=== PATIENT | male | born 1950 | race Caucasian/White ===

== ENCOUNTER 2017-07-17 11:14 | Inpatient (IN) | payer MEDICARE, OTHER ==
[~2017-07-17] VITALS: Ht 157.5 cm; Wt 67.0 kg
[2017-07-17 11:18] VITALS: Ht 157.5 cm; Wt 67.0 kg
[2017-07-17] MEDS ORDERED: ONDANSETRON 4 MG INJ IV PRN (12:00)
[2017-07-17] MEDS ORDERED: ACETAMINOPHEN 325 MG TAB PO PRN (12:00)
[2017-07-17 12:37] LABS: BASOPHILS % 0.4 % (0.0-2.0); EOSINOPHILS # 0.1 10^3/ul (0.0-0.5); EOSINOPHILS % 0.9 % (0.0-7.0); HEMATOCRIT 37.7 % (42.0-52.0); HEMOGLOBIN 12.2 g/dl (14.0-18.0); LYMPHOCYTES # 2.6 10^3/ul (0.8-2.9); LYMPHOCYTES % 34.6 % (15.0-51.0); MEAN CORPUSCULAR HEMOGLOBIN 28.6 pg (29.0-33.0); MEAN CORPUSCULAR HGB CONC 32.4 g/dl (32.0-37.0); MEAN CORPUSCULAR VOLUME 88.5 fl (82.0-101.0); MEAN PLATELET VOLUME 9.6 fl (7.4-10.4); MONOCYTE # 0.5 10^3/ul (0.3-0.9); MONOCYTES % 6.5 % (0.0-11.0); NEUTROPHILS % 57.3 % (39.0-77.0); PLATELET COUNT 236 10^3/UL (140-415); RED BLOOD COUNT 4.26 10^6/ul (4.70-6.10); RED CELL DISTRIBUTION WIDTH 15.1 % (11.5-14.5); WHITE BLOOD COUNT 7.6 10^3/ul (4.8-10.8)
--- NOTE | 2017-07-17 13:14 | RADRPT ---
PROCEDURE: XR Chest 1 View. CLINICAL INDICATION: Chest pain TECHNIQUE: AP view of the chest was obtained. COMPARISON: None. FINDINGS: The cardiomediastinal silhouette is within normal limits. Subsegmental atelectasis is noted in the b ilateral lower lobes. No consolidations are identified. No pneumothorax is seen. Osseous structure s are intact. IMPRESSION: Subsegmental atelectasis in the bilateral lower lobes. RPTAT: AA .Cole Mcdonald MD, MD Date Time Electronically viewed and signed by .Cole Mcdonald MD, on 07/17/2017 13:14 .P/
[2017-07-17 13:17] LABS: CALCIUM 9.4 mg/dl (8.4-10.2); CREATININE 1.49 mg/dl (0.61-1.24); POTASSIUM 4.9 mmol/L (3.5-5.1)
[2017-07-17] MEDS ORDERED: NITROGLYCERIN 2% 1 GM OINT PKT TD STA (13:23)
[2017-07-17] MEDS ORDERED: ASPIRIN 81 MG TAB PO STA (13:23)
--- NOTE | 2017-07-17 13:23 | ERA ---
ER Documentation Chief Complaint Date/Time DATE: 07/17/17 TIME: 13:20 Chief Complaint dizzfletcher, cp, send by dr keyes due abnormal ekg HPI Patient is a 67-year-old male with hypertension and smoking who presents with chest pain. The patient has had chest pain for the past 2-3 months which comes and goes. He feels it like a pressure-like pain. He says that currently he has no chest pain. He was seen by Dr. Khalil his primary doctor in the office today who was concerned about his EKG and sent him to the ER for further workup and admission. ROS All systems reviewed and are negative except as per history of present illness. Allergies Allergies: Coded Allergies: No Known Allergy (Unverified , 07/17/17) PMhx/Soc History of Surgery: Yes (appendix) Hx Neurological Disorder: Yes (stroke) Hx Cardiac Disorders: Yes (htn, mi) Hx Alcohol Use: No Hx Substance Use: No Hx Tobacco Use: No Smoking Status: Never smoker FmHx Family History: No coronary disease, No diabetes Physical Exam Vitals Vital Signs Date Time Temp Pulse Resp B/P Pulse Ox O2 Delivery O2 Flow Rate FiO2 07/17/17 11:18 98.1 68 20 131/77 99 Physical Exam Const: No acute distress Head: Atraumatic Eyes: Normal Conjunctiva ENT: Normal External Ears, Nose and Mouth. Neck: Full range of motion..~ No meningismus. Resp: Clear to auscultation bilaterally Cardio: Regular rate and rhythm, no murmurs Abd: Soft, non tender, non distended. Normal bowel sounds Skin: No petechiae or rashes Back: No midline or flank tenderness Ext: No cyanosis, or edema Neur: Awake and alert Psych: Normal Mood and Affect Result Diagram: 07/17/17 1215 07/17/17 1215 Procedures/MDM EKG read by me: Rate/Rhythm: Regular rate and rhythm at a normal rate Intervals: Normal Impression: Patient has sinus rhythm with a normal rate however there are biphasic T waves in leads V2 and V3 concerning for possible Wellens syndrome Chest x-ray shows no pneumonia or pneumothorax per radiology. Smoking Cessation Therapy: Pt. was lectured for greater than 3 minutes on the health risks of continued smoking and the benefits of cessation. Patient is a 67-year-old male with hypertension and smoking history of presents with chest pain. Given his age and comorbidities I am concerned for possible acute coronary syndrome. His EKG is concerning as well. He does not meet STEMI criteria at this time. The patient has laboratory studies show a mild anemia and mild acute renal failure. The patient is pending a troponin at this time. The patient was given aspirin nitroglycerin empirically. He will be admitted to the care of Dr. Khalil his primary doctor. He will be admitted to a telemetry bed and will likely need cardiology consultation and potential catheterization urgently. Critical Care: Time: 35 minutes excluding all billable procedures. Treatments/Evaluations: Close monitoring and treatment of unstable vital signs, cardiorespiratory, and neurologic status, while maintaining tight balance of fluid, respiratory, and cardiac interventions. Departure Diagnosis: Primary Impression: Chest pain Qualified Code: R07.9 - Chest pain, unspecified type Condition: SERGO Collier MD Jul 17, 2017 13:23
[2017-07-17 13:25] VITALS: BP 136/80; PULSE 77; RESP 20
[2017-07-17] MEDS ORDERED: NITROGLYCERIN (SL) 0.4 MG TAB SL PRN ×2 (13:30→15:00)
[2017-07-17 13:52] LABS: TROPONIN-I 0.269 ng/ml (0.00-0.12)
[2017-07-17 14:00] VITALS: PULSE 68
[2017-07-17] MEDS ORDERED: LORAZEPAM 0.5 MG TAB PO PRN (15:00)
[2017-07-17] MEDS ORDERED: ACETAMINOPHEN 500 MG TAB PO PRN (15:00)
[2017-07-17 16:00] VITALS: PULSE 62
[2017-07-17] MEDS: IPRATROPIUM (NEB) 0.5 MG/2.5 ML AMP HHN SCH ×2 (16:00→23:34)
[2017-07-17] MEDS: ALBUTEROL 0.083% (NEB) 2.5 MG/3 ML AMP HHN SCH ×2 (16:00→23:34)
--- NOTE | 2017-07-17 16:28 | CONS ---
Date/Time of Note Date/Time of Note DATE: 07/17/17 TIME: 16:27 Assessment/Plan Assessment/Plan Chief Complaint/Hosp Course NSTEMI: Pt has been having chest pain with exertion or emotional stress for 2 months now. His EKG is certainly concerning for a recent ID which judging by the pt's body stoicism, he likely ignored. Now he is having significant angina still and his initial trop is mildly elevated (I wonder if it is still coming down and has not cleared from his ID) and checking a trend and CKMB would help decide on subacuity. Currently he is completely asymptomatic and therefore no need for emergent cardiac cath. Will trend trops (if rising, start heparin drip) , check echo (suspect low EF from ID) and plan for cardiac cath as soon as chemical laboratory tester availability allows. Likely cardiomyopathy: check echo. Borderline fluid status HTN Tobacco use -stat trop, if rising start heparin drip, otherwise trend for now -continue ASA, statin -possible cath tomorrow at 12:30 as there may be a cancellation. For now keep NPO after midnight -add coreg -echo Problems: Consultation Date/Type/Reason Admit Date/Time Jul 17, 2017 at 11:47 Date of Consultation: Jul 17, 2017 Type of Consultation: Cardiology Reason for Consultation NSTEMI, chest pain, abnormal EKG Referring Provider: FAWN FERGUSON MD Hx of Present Illness 67 yo M with a h/o HTN, tobacco use who presented to his PMD (Dr Ferguson) office complaining of two months of chest pain and was sent to the ED for further management. The pt notes that over the past 2 months he has been having chest and neck pressure everytime he exerts himself, gets emotionally upset, or has food. He also has been having intermittent episodes of SOB and RAPP but no orthopnea, edema. His family tells me that he had an irregular heart beat and was offered a PPM but refused. He denies syncope. Currently no symptoms and in general no rest symptoms unless eating or upset. per HPI, otherwise negative Past Medical History per HPI Social History Smoking Status: Never smoker Exam/Review of Systems Vital Signs Vitals Vital Signs Date Time Temp Pulse Resp B/P Pulse Ox O2 Delivery O2 Flow Rate FiO2 07/17/17 13:25 97.7 77 20 136/80 98 Room Air Exam Constitutional: alert, oriented, No distress Psych: nl mood/affect, no complaints Head: atraumatic, normocephalic Eyes: nl conjunctiva ENMT: nl nasal mucosa & septum Neck: jvd (7-8cm), supple Respiratory: clear to auscultation, No crackles/rales, No diminished breath sounds Cardiovascular: regular rate and rhythm, systolic murmur (2/6 CHANDU), No edema Gastrointestinal: non-tender, soft, No distended Neurological: nl mental status, nl speech Skin: No rash or lesions Results EKG: sinus, anterolateral q waves V1 through V4 with mild ST elevation and biphasic TWs Result Diagram: 07/17/17 1215 07/17/17 1215 Results 24 hrs Laboratory Tests Test 07/17/17 12:15 White Blood Count 7.6 Red Blood Count 4.26 L Hemoglobin 12.2 L Hematocrit 37.7 L Mean Corpuscular Volume 88.5 Mean Corpuscular Hemoglobin 28.6 L Mean Corpuscular Hemoglobin Concent 32.4 Red Cell Distribution Width 15.1 H Platelet Count 236 Mean Platelet Volume 9.6 Neutrophils % 57.3 Lymphocytes % 34.6 Monocytes % 6.5 Eosinophils % 0.9 Basophils % 0.4 Nucleated Red Blood Cells % 0.0 Neutrophils # (Manual) 4.3 Lymphocytes # 2.6 Monocytes # 0.5 Eosinophils # 0.1 Basophils # 0.0 Nucleated Red Blood Cells # 0.0 Sodium Level 141 Potassium Level 4.9 Chloride Level 106 Carbon Dioxide Level 25 Anion Gap 15 Blood Urea Nitrogen 27 H Creatinine 1.49 H Glucose Level 85 Calcium Level 9.4 Troponin I 0.269 *H Medications Medications Current Medications Lorazepam (Ativan) 0.5 mg Q6H PRN PO ANXIETY; Start 07/17/17 at 15:00 Atorvastatin Calcium (Lipitor) 40 mg HS PO ; Start 07/17/17 at 21:00 Nitroglycerin (Nitroglycerin (Sl Tab) 0.4 Mg) 1 tab Q5M PRN SL ANGINA; Start at 15:00 Metoprolol Tartrate (Lopressor) 25 mg BID PO ; Start 07/17/17 at 21:00 Enalapril Maleate (Vasotec) 2.5 mg BID PO ; Start 07/17/17 at 21:00 Pantoprazole (Protonix Tab) 40 mg DAILY@06 PO ; Start 07/18/17 at 06:00 Enoxaparin Sodium (Lovenox) 40 mg BID SC ; Start 07/17/17 at 21:00 Acetaminophen (Tylenol Tab) 500 mg Q6H PRN PO PAIN AND OR ELEVATED TEMP; Start 07/17/17 at 15:00 Aspirin (Ecotrin) 81 mg DAILY PO ; Start 07/18/17 at 09:00 Fenofibrate (Tricor) 145 mg DAILY PO ; Start 07/18/17 at 09:00 Carvedilol (Coreg) 3.125 mg BID PO ; Start 07/17/17 at 16:30; Status UNV SHELLY FELICIANO Jul 17, 2017 16:28
[2017-07-17 20:00] VITALS: BP 114/78; PULSE 80; RESP 18
--- NOTE | 2017-07-17 20:29 | HP ---
Date/Time of Note Date/Time of Note DATE: 07/17/17 TIME: 20:19 Assessment/Plan VTE Prophylaxis VTE Prophylaxis Intervention: ambulation, anti-embolic stocking VTE Contraindication Reason: peripheral vascular disease Lines/Catheters IV Catheter Type (from Nrs): [place] [employer] line still needed: No Urinary Cath still in place: No Reason Cath still needed: urinary retention Assessment/Plan Assessment/Plan 1.IHD angina s/p acute mi; still with elevated troponin 2.HTN with mild chf 3.Dyslipidemia 4.COPD 5.heavy smoker for more than 40 years 6Hx of PUD 7.PAD 8.Nicotine addiction 9.Weight loss 10.Memory impairment 11.BPH 12.Dizziness 13.Noncompliance to meds. 14.Hx of CVA with left weakness more than 10 years ago, resolved Cont'd Hospitalization Reason: acute mi. HPI/ROS Admit Date/Time Admit Date/Time Jul 17, 2017 at 11:47 Hx of Present Illness CP on and off last 2 months. Now with more pressure sensation and worsening of sob. ECG in the office had shown diffuse anterio-septo and lateral st-t changes.No pvc's; Referred to er and asked to evaluate the patient. Hx of CVA with the HX of pud . ROS Subjective hx not possible: pt critical status Constitutional: diaphoresis, fatigue, improved, nausea, poor po, No chills, No disoriented, No febrile, No no complaints, No other, No weight change ENT: congestion, discharge, sore throat, No bleeding, No dysphagia, No no complaints, No other, No pain Respiratory: cough, shortness of breath, No no complaints, No other, No pain, No pleuritic pain, No sputum, No wheezing Cardiovascular: chest pain (no no pain. Pressure sensation is there.), lightheadedness, palpitations, No edema, No no complaints, No orthopenea, No other, No paroxysmal nocturnal dyspnea Gastrointestinal: constipation, decreased appetite, passing stool, No blood, No diarrhea, No flatus, No nausea, No no complaints, No other, No pain, No vomiting Genitourinary: dysuria, flank pain, No bleeding, No discharge, No hematuria, No no complaints, No other Musculoskeletal: back pain, bone/joint pain, neck pain, No no complaints, No other, No restricted range of motion, No swelling Skin: pruritis, No bruising, No erythema, No laceration, No no complaints, No other, No rash , No skin lesions Neurologic: dizziness, headache, No confusion, No focal-weakness, No no complaints, No other, No seizure, No syncope Endocrine: dry skin, polydypsia Psychological: nl mood/affect, no complaints Immunologic: pruritis PMH/Family/Social Past Medical History Medical History: angina, colitis, congestive heart failure, coronary artery disease, diverticulitis, GERD, GI bleed, high cholesterol, hypertension, peptic ulcer disease, urinary tract infection, other (CVA.) Family History Significant Family History: heart disease, COPD Social History Alcohol Use: rarely Smoking Status: Current every day smoker Drug Use: none Exam/Review of Systems Vital Signs Vitals Vital Signs Date Time Temp Pulse Resp B/P Pulse Ox O2 Delivery O2 Flow Rate FiO2 07/17/17 16:57 82 17 96 21 07/17/17 13:25 97.7 136/80 Room Air Exam Constitutional: alert, distress, frail, oriented, well developed, No non-verbal, No other Psych: anxiety, depression, No confusion, No nl mood/affect, No no complaints, No other, No suicidal Head: atraumatic, normocephalic, No hematomas, No lacerations, No other Eyes: EOMI, PERRL, nl lids, No fundi, disc, No icteric, No nl conjunctiva, No nl sclera, No other ENMT: nl lips & teeth, No intubated, No mucosa pink and moist, No nl external ears & nose, No nl nasal mucosa & septum, No other, No tympanic membranes Neck: bruits, jvd, nuchal rigidity Respiratory: congested cough, diminished breath sounds, normal air movement, No clear to auscultation, No crackles/rales, No intercostal retraction, No labored breathing, No other, No respirations, No tactile fremitus, No wheezing Cardiovascular: bruits, regular rate and rhythm, systolic murmur Gastrointestinal: nl liver, spleen, non-tender, soft, No ascites, No bowel sounds, No distended, No firm, No hepatomegaly, No mass , No other, No rebound or guarding, No splenomegaly, No surgical scars, No tender Genitourinary - Male: nl penis, nl scrotum, No CVA tenderness, No discharge, No other Musculoskeletal: joint tenderness, muscle tone, muscle weakness Extremities: clubbing, normal pulses, No calf tenderness, No cyanosis, No edema, No other, No palpable cord, No pitting pedal edema, No tenderness Neurological: PO[employer] H[employer] INS[employer]OR II-XII intact, DTR's symmetric, nl mental status, No confused, No focal weakness, No lethargic, No nl speech, No nl strength, No numbness, No other, No reflexes, No unresponsive Skin: nl turgor (decreased.), No diaphoresis, No ecchymosis, No laceration, No other, No puncture, No rash or lesions Labs Result Diagram: 07/17/17 1215 07/17/17 1215 Medications Medications Current Medications Lorazepam (Ativan) 0.5 mg Q6H PRN PO ANXIETY; Start 07/17/17 at 15:00 Atorvastatin Calcium (Lipitor) 40 mg HS PO ; Start 07/17/17 at 21:00 Nitroglycerin (Nitroglycerin (Sl Tab) 0.4 Mg) 1 tab Q5M PRN SL ANGINA; Start at 15:00 Enalapril Maleate (Vasotec) 2.5 mg BID PO ; Start 07/17/17 at 21:00 Pantoprazole (Protonix Tab) 40 mg DAILY@06 PO ; Start 07/18/17 at 06:00 Enoxaparin Sodium (Lovenox) 40 mg BID SC ; Start 07/17/17 at 21:00 Acetaminophen (Tylenol Tab) 500 mg Q6H PRN PO PAIN AND OR ELEVATED TEMP; Start 07/17/17 at 15:00 Aspirin (Ecotrin) 81 mg DAILY PO ; Start 07/18/17 at 09:00 Fenofibrate (Tricor) 145 mg DAILY PO ; Start 07/18/17 at 09:00 Carvedilol (Coreg) 3.125 mg BID PO ; Start 07/17/17 at 16:30 FAWN FERGUSON MD Jul 17, 2017 20:29
[2017-07-17] MEDS: NICOTINE (7 MG/24 HR) PATCH TRANSDERM SCH (20:30)
[2017-07-17 20:35] LABS: CK-MB 1.4 ng/ml (0.0-2.4); TROPONIN-I 0.225 ng/ml (0.00-0.12)
[2017-07-17 20:49] LABS: IRON 29 ug/dl (35-150)
[2017-07-17 20:58] LABS: TOTAL IRON BINDING CAPACITY 290 ug/dl (241-421)
[2017-07-17] MEDS ORDERED: METOPROLOL 25 MG TAB PO SCH (21:00)
[2017-07-17 22:01] VITALS: PULSE 59
[2017-07-17] MEDS: AZITHROMYCIN 500MG/NS (PMX) 250 ML IVPB SCH (22:42)
[2017-07-17] MEDS: ATORVASTATIN 40 MG TAB PO SCH (22:43)
[2017-07-17] MEDS: ENALAPRIL 2.5 MG TAB PO SCH (22:43)
[2017-07-17] MEDS: ENOXAPARIN 40 MG/0.4 ML SYG SC SCH (22:44)
--- NOTE | 2017-07-17 23:20 | CONS ---
Date/Time of Note Date/Time of Note DATE: 07/17/17 TIME: 23:20 Consultation Date/Type/Reason Admit Date/Time Jul 17, 2017 at 11:47 ENT: congestion, discharge, sore throat, No bleeding, No dysphagia, No no complaints, No other, No pain Respiratory: cough, shortness of breath, No no complaints, No other, No pain, No pleuritic pain, No sputum, No wheezing Cardiovascular: chest pain (no no pain. Pressure sensation is there.), lightheadedness, palpitations, No edema, No no complaints, No orthopenea, No other, No paroxysmal nocturnal dyspnea Gastrointestinal: constipation, decreased appetite, passing stool, No blood, No diarrhea, No flatus, No nausea, No no complaints, No other, No pain, No vomiting Genitourinary: dysuria, flank pain, No bleeding, No discharge, No hematuria, No no complaints, No other Musculoskeletal: back pain, bone/joint pain, neck pain, No no complaints, No other, No restricted range of motion, No swelling Skin: pruritis, No bruising, No erythema, No laceration, No no complaints, No other, No rash , No skin lesions Neurologic: dizziness, headache, No confusion, No focal-weakness, No no complaints, No other, No seizure, No syncope Psychological: anxiety, depression, No confusion, No nl mood/affect, No no complaints, No other, No suicidal Immunologic: pruritis Past Medical History Medical History: angina, colitis, congestive heart failure, coronary artery disease, diverticulitis, GERD, GI bleed, high cholesterol, hypertension, peptic ulcer disease, urinary tract infection, other (CVA.) Social History Alcohol Use: rarely Smoking Status: Current every day smoker Drug Use: none Exam/Review of Systems Vital Signs Vitals Vital Signs Date Time Temp Pulse Resp B/P Pulse Ox O2 Delivery O2 Flow Rate FiO2 07/17/17 22:01 59 07/17/17 20:00 97.9 18 114/78 100 Room Air 07/17/17 16:57 21 Results Result Diagram: 07/17/17 1215 07/17/17 1215 Results 24 hrs Laboratory Tests Test 07/17/17 12:15 07/17/17 16:28 07/17/17 19:48 White Blood Count 7.6 Red Blood Count 4.26 L Hemoglobin 12.2 L Hematocrit 37.7 L Mean Corpuscular Volume 88.5 Mean Corpuscular Hemoglobin 28.6 L Mean Corpuscular Hemoglobin Concent 32.4 Red Cell Distribution Width 15.1 H Platelet Count 236 Mean Platelet Volume 9.6 Neutrophils % 57.3 Lymphocytes % 34.6 Monocytes % 6.5 Eosinophils % 0.9 Basophils % 0.4 Nucleated Red Blood Cells % 0.0 Neutrophils # (Manual) 4.3 Lymphocytes # 2.6 Monocytes # 0.5 Eosinophils # 0.1 Basophils # 0.0 Nucleated Red Blood Cells # 0.0 Sodium Level 141 Potassium Level 4.9 Chloride Level 106 Carbon Dioxide Level 25 Anion Gap 15 Blood Urea Nitrogen 27 H Creatinine 1.49 H Glucose Level 85 Calcium Level 9.4 Iron Level 29 L Total Iron Binding Capacity 290 Percent Iron Saturation 10 L Troponin I 0.269 *H 0.246 *H 0.225 *H Creatine Kinase 73 Creatine Kinase Index 1.9 Creatinine Kinase MB (Mass) 1.40 Medications Medications Current Medications Lorazepam (Ativan) 0.5 mg Q6H PRN PO ANXIETY; Start 07/17/17 at 15:00 Atorvastatin Calcium (Lipitor) 40 mg HS PO Last administered on 07/17/17 22:43 ; Admin Dose 40 MG; Start 07/17/17 at 21:00 Nitroglycerin (Nitroglycerin (Sl Tab) 0.4 Mg) 1 tab Q5M PRN SL ANGINA; Start at 15:00 Enalapril Maleate (Vasotec) 2.5 mg BID PO Last administered on 07/17/17 22:43; Admin Dose 2.5 MG; Start 07/17/17 at 21:00 Pantoprazole (Protonix Tab) 40 mg DAILY@06 PO ; Start 07/18/17 at 06:00 Enoxaparin Sodium (Lovenox) 40 mg BID SC Last administered on 07/17/17 22:44; Admin Dose 40 MG; Start 07/17/17 at 21:00 Acetaminophen (Tylenol Tab) 500 mg Q6H PRN PO PAIN AND OR ELEVATED TEMP; Start 07/17/17 at 15:00 Aspirin (Ecotrin) 81 mg DAILY PO ; Start 07/18/17 at 09:00 Fenofibrate (Tricor) 145 mg DAILY PO ; Start 07/18/17 at 09:00 Carvedilol (Coreg) 3.125 mg BID PO Last administered on 07/17/17 22:43; Admin Dose 3.125 MG; Start 07/17/17 at 16:30 Nicotine 1 patch 1 patch DAILY TRANSDERM Last administered on 07/17/17 20:30; Admin Dose 1 PATCH; Start 07/17/17 at 20:30 Azithromycin (Zithromax 500mg/ NS (Pmx)) 250 ml @ 250 mls/hr Q24H IVPB Last administered on 07/17/17 22:42; Admin Dose 250 MLS/HR; Start 07/17/17 at 20:30; Stop 07/19/17 at 20:29 BARBER BUITRAGO MD Jul 17, 2017 23:20
[2017-07-17 23:49] VITALS: BP 120/62; PULSE 64; RESP 16
[2017-07-18] VITALS (40 sets, daily range): BP systolic 108–149; BP diastolic 56–82; PULSE 52–72; RESP 17–20
[2017-07-18 00:24] LABS: CK-MB 1.27 ng/ml (0.0-2.4); TROPONIN-I 0.243 ng/ml (0.00-0.12)
[2017-07-18] MEDS: PANTOPRAZOLE (EC) 40 MG TAB PO SCH (05:45)
[2017-07-18 06:11] LABS: BASOPHILS % 0.6 % (0.0-2.0); EOSINOPHILS # 0.1 10^3/ul (0.0-0.5); EOSINOPHILS % 1.5 % (0.0-7.0); HEMATOCRIT 34.3 % (42.0-52.0); HEMOGLOBIN 11.1 g/dl (14.0-18.0); LYMPHOCYTES # 2.9 10^3/ul (0.8-2.9); MEAN CORPUSCULAR HEMOGLOBIN 28.3 pg (29.0-33.0); MEAN CORPUSCULAR HGB CONC 32.4 g/dl (32.0-37.0); MEAN CORPUSCULAR VOLUME 87.5 fl (82.0-101.0); MEAN PLATELET VOLUME 9.9 fl (7.4-10.4); MONOCYTE # 0.5 10^3/ul (0.3-0.9); MONOCYTES % 6.9 % (0.0-11.0); NEUTROPHILS % 49.7 % (39.0-77.0); PLATELET COUNT 217 10^3/UL (140-415); RED BLOOD COUNT 3.92 10^6/ul (4.70-6.10); RED CELL DISTRIBUTION WIDTH 15.1 % (11.5-14.5); WHITE BLOOD COUNT 7.2 10^3/ul (4.8-10.8)
[2017-07-18 06:22] LABS: RETICULOCYTE COUNT % 1.1 % (0.5-1.5)
[2017-07-18 06:45] LABS: IRON 37 ug/dl (35-150)
[2017-07-18 06:55] LABS: TOTAL IRON BINDING CAPACITY 254 ug/dl (241-421)
[2017-07-18 07:01] LABS: CK-MB 1.15 ng/ml (0.0-2.4); TROPONIN-I 0.225 ng/ml (0.00-0.12)
[2017-07-18 07:31] LABS: CHOL/HDL RATIO 7.2 RATIO
[2017-07-18 07:38] LABS: LACTATE DEHYDROGENASE 432 IU/L (313-618); URIC ACID 7.7 mg/dl (3.1-7.9)
[2017-07-18] MEDS: ALBUTEROL 0.083% (NEB) 2.5 MG/3 ML AMP HHN SCH (08:00)
[2017-07-18] MEDS: IPRATROPIUM (NEB) 0.5 MG/2.5 ML AMP HHN SCH (08:00)
[2017-07-18 08:02] LABS: CARCINOEMBRYONIC ANTIGEN 1.4 ng/ml (0.0-5.0)
[2017-07-18 08:53] LABS: FOLATE > 20.0 ng/ml (2.8-20.0)
[2017-07-18] MEDS ORDERED: ASPIRIN (EC) 325 MG TAB PO SCH (09:00)
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
[2017-07-18] MEDS: FENOFIBRATE 145 MG TAB PO SCH (09:39)
[2017-07-18] MEDS: ENALAPRIL 2.5 MG TAB PO SCH ×2 (09:40→22:43)
[2017-07-18] MEDS: ENOXAPARIN 40 MG/0.4 ML SYG SC SCH ×2 (09:41→22:39)
[2017-07-18] MEDS: NICOTINE (7 MG/24 HR) PATCH TRANSDERM SCH (09:42)
--- NOTE | 2017-07-18 11:08 | CONS ---
Date/Time of Note Date/Time of Note DATE: 07/18/17 TIME: 10:59 Assessment/Plan Assessment/Plan Chief Complaint/Hosp Course NSTEMI: Pt has been having chest pain with exertion or emotional stress for 2 months now. His EKG is certainly concerning for a recent MD which judging by the pt's body stoicism, he likely ignored. Now he is having significant angina his trops suggest he had an MD in the recent past. Plan for cath for ongoing angina Likely cardiomyopathy: check echo. Borderline fluid status CKD: unknown baseline but per pt he has a h/o CKD HTN Tobacco use -cath today at 12:30 -continue ASA, statin -coreg -echo Problems: Consultation Date/Type/Reason Admit Date/Time Jul 17, 2017 at 11:47 Initial Consult Date 07/17/17 Type of Consultation: Cardiology Referring Provider: FAWN FERGUSON MD 24 HR Interval Summary Free Text/Dictation No o/n events. No chest pain overnight. Trops low level still ~0.2 Exam/Review of Systems Vital Signs Vitals Vital Signs Date Time Temp Pulse Resp B/P Pulse Ox O2 Delivery O2 Flow Rate FiO2 07/18/17 08:00 62 07/17/17 23:49 97.9 16 120/62 95 Room Air 07/17/17 23:34 21 Exam Constitutional: alert, oriented Psych: no complaints Head: atraumatic, normocephalic Neck: jvd (7-8cm) Respiratory: clear to auscultation, No crackles/rales Cardiovascular: regular rate and rhythm, No edema Gastrointestinal: non-tender, soft Extremities: normal pulses Neurological: nl mental status, nl speech Results Result Diagram: 07/18/17 0430 07/17/17 1215 Results 24 hrs Laboratory Tests Test 07/17/17 12:15 07/17/17 16:28 07/17/17 19:48 07/17/17 23:36 White Blood Count 7.6 Red Blood Count 4.26 L Hemoglobin 12.2 L Hematocrit 37.7 L Mean Corpuscular Volume 88.5 Mean Corpuscular Hemoglobin 28.6 L Mean Corpuscular Hemoglobin Concent 32.4 Red Cell Distribution Width 15.1 H Platelet Count 236 Mean Platelet Volume 9.6 Neutrophils % 57.3 Lymphocytes % 34.6 Monocytes % 6.5 Eosinophils % 0.9 Basophils % 0.4 Nucleated Red Blood Cells % 0.0 Neutrophils # (Manual) 4.3 Lymphocytes # 2.6 Monocytes # 0.5 Eosinophils # 0.1 Basophils # 0.0 Nucleated Red Blood Cells # 0.0 Sodium Level 141 Potassium Level 4.9 Chloride Level 106 Carbon Dioxide Level 25 Anion Gap 15 Blood Urea Nitrogen 27 H Creatinine 1.49 H Glucose Level 85 Calcium Level 9.4 Iron Level 29 L Total Iron Binding Capacity 290 Percent Iron Saturation 10 L Troponin I 0.269 *H 0.246 *H 0.225 *H 0.243 *H Creatine Kinase 73 63 Creatine Kinase Index 1.9 2.0 Creatinine Kinase MB (Mass) 1.40 1.27 Test 07/18/17 04:29 07/18/17 04:30 Absolute Reticulocyte Count 0.042 Percent Reticulocyte Count 1.1 Uric Acid 7.7 Ferritin 144.0 Lactate Dehydrogenase 432 Triglycerides Level 161 H Cholesterol Level 195 LDL Cholesterol, Calculated 136 HDL Cholesterol 27 L Cholesterol/HDL Ratio 7.2 Carcinoembryonic Antigen 1.4 Vitamin B12 Level 331 Folate > 20.0 H Thyroid Stimulating Hormone (TSH) 1.740 White Blood Count 7.2 Red Blood Count 3.92 L Hemoglobin 11.1 L Hematocrit 34.3 L Mean Corpuscular Volume 87.5 Mean Corpuscular Hemoglobin 28.3 L Mean Corpuscular Hemoglobin Concent 32.4 Red Cell Distribution Width 15.1 H Platelet Count 217 Mean Platelet Volume 9.9 Neutrophils % 49.7 Lymphocytes % 41.0 Monocytes % 6.9 Eosinophils % 1.5 Basophils % 0.6 Nucleated Red Blood Cells % 0.0 Neutrophils # (Manual) 3.6 Lymphocytes # 2.9 Monocytes # 0.5 Eosinophils # 0.1 Basophils # 0.0 Nucleated Red Blood Cells # 0.0 Erythrocyte Sedimentation Rate 47 H Iron Level 37 Total Iron Binding Capacity 254 Percent Iron Saturation 15 L Creatine Kinase 59 Creatine Kinase Index 1.9 Creatinine Kinase MB (Mass) 1.15 Troponin I 0.225 *H Medications Medications Current Medications Lorazepam (Ativan) 0.5 mg Q6H PRN PO ANXIETY; Start 07/17/17 at 15:00 Atorvastatin Calcium (Lipitor) 40 mg HS PO Last administered on 07/17/17t 22:43 ; Admin Dose 40 MG; Start 07/17/17 at 21:00 Nitroglycerin (Nitroglycerin (Sl Tab) 0.4 Mg) 1 tab Q5M PRN SL ANGINA; Start at 15:00 Enalapril Maleate (Vasotec) 2.5 mg BID PO Last administered on 07/18/17 09:40; Admin Dose 2.5 MG; Start 07/17/17 at 21:00 Pantoprazole (Protonix Tab) 40 mg DAILY@06 PO Last administered on 07/18/17 05: 45; Admin Dose 40 MG; Start 07/18/17 at 06:00 Enoxaparin Sodium (Lovenox) 40 mg BID SC Last administered on 07/18/17 09:41; Admin Dose 40 MG; Start 07/17/17 at 21:00 Acetaminophen (Tylenol Tab) 500 mg Q6H PRN PO PAIN AND OR ELEVATED TEMP; Start 07/17/17 at 15:00 Fenofibrate (Tricor) 145 mg DAILY PO Last administered on 07/18/17 09:39; Admin Dose 145 MG; Start 07/18/17 at 09:00 Carvedilol (Coreg) 3.125 mg BID PO Last administered on 07/17/17 22:43; Admin Dose 3.125 MG; Start 07/17/17 at 16:30 Nicotine 1 patch 1 patch DAILY TRANSDERM Last administered on 07/18/17 09:42; Admin Dose 1 PATCH; Start 07/17/17 at 20:30 Azithromycin (Zithromax 500mg/ NS (Pmx)) 250 ml @ 250 mls/hr Q24H IVPB Last administered on 07/17/17 22:42; Admin Dose 250 MLS/HR; Start 07/17/17 at 20:30; Stop 07/19/17 at 20:29 Aspirin (Halfprin) 81 mg DAILY PO ; Start 07/18/17 at 09:47 SHELLY FELICIANO Jul 18, 2017 11:08
[2017-07-18] MEDS: ASPIRIN (EC) 81 MG TAB PO SCH (11:17)
--- NOTE | 2017-07-18 13:06 | RADRPT ---
Echocardiogram Report Patient Name: BUBBA PARDO Gender: Male Date: 1950 Study Date: 18-Jul-2017 Recruiting Manager: Prema LanderosTUBA CITY [facility] Ref. Physician: SHELLY LORENZANA Quality: Good Procedures: Transthoracic echocardiogram with complete 2D, M-Mode, and doppler examination. Indications: Abnormal EKG (anterior). NSTEMI. 2D/M Mode Doppler Measurement Value Normal Ranges Measurement Value Normal Ranges LVIDd 2D 4.5 3.5 - 5.6 cm AV Peak Jonathan 1.6 m/sec LVIDs 2D 3.2 2.1 - 4.1 cm AV Peak PG 10.0 mmHg FS 2D 29.8 % LVOT Peak Jonathan 1.0 m/sec LVPWd 2D 1.3 0.6 - 1.1 cm LVOT Peak PG 4.0 mmHg IVSd 2D 1.3 0.6 - 1.1 cm MV E Peak Jonathan 0.7 m/sec IVS/LVPW 2D 1.0 MV A Peak Jonathan 1.0 m/sec AoR Diam 2D 3.2 2.0 - 3.7 cm MV E/A 0.7 LA/Ao 2D 1 0 - 1 MV Decel Time 268 msec EDV 2D 90.5 cm3 MV E/A 0.7 ESV 2D 31.3 cm3 MR Peak PG 63.0 mmHg LA Dimen 2D 3.5 2.3 - 4.0 cm MR Peak Jonathan 4.0 m/sec TR Peak Jonathan 2.6 m/sec TR Peak PG 27.0 mmHg RVSP 30.0 mmHg Findings Left Ventricle: Normal left ventricular cavity size. Mild concentric left ventricular hypertrophy. Mild left ventricular systolic dysfunction. Ejection fraction is visually estimated at 45 %. Tissue Doppler/Mitral Doppler indices are consistent with impaired relaxation (Stage I diastolic dysfunction). Resting Segmental Wall Motion Analysis: Severe hypokinesis of the mid to distal septum and akinesis of the septum. Mild hypokinesis of the anterior wall. Right Ventricle: Normal right ventricular size. Normal right ventricular systolic function. Left Atrium: There is mild enlargement of left atrium. Right Atrium: The right atrium is normal in size. Mitral Valve: Mild mitral annular calcification. Mild mitral valve regurgitation. Aortic Valve: No hemodynamically significant aortic stenosis by doppler. Aortic cusps appear mildly calcified. Trace aortic valve regurgitation. Tricuspid Valve: Normal appearance of the tricuspid valve. Estimated peak PA systolic pressure 30 mmHg. There is trace tricuspid regurgitation. Pulmonic Valve: Normal pulmonic valve appearance. Pericardium: Normal pericardium with no significant pericardial effusion. Aorta: Normal aortic root. IVC: Normal size and normal respiratory collapse consistent with normal right atrial pressure. Conclusions Normal left ventricular cavity size. Mild concentric left ventricular hypertrophy. Mild left ventricular systolic dysfunction. Ejection fraction is visually estimated at 45 %. Tissue Doppler/Mitral Doppler indices are consistent with impaired relaxation (Stage I diastolic dysfunction). Severe hypokinesis of the mid to distal septum and akinesis of the septum. Mild hypokinesis of the anterior wall. Mild mitral valve regurgitation. Estimated peak PA systolic pressure 30 mmHg based on RA pressure of 3 mmHg. Electronically Signed By: Shelly Lorenzana 18-Jul-2017 13:05:30 -0700 Patient Name: BUBBA PARDO Study Date: 18-Jul-2017 [id number]
[2017-07-18] MEDS ORDERED: HEPARIN 1000 UNITS/ML 10 ML INJ ONE (13:28)
[2017-07-18] MEDS ORDERED: LIDOCAINE 1% (MDV) 20 ML INJ ONE (13:28)
[2017-07-18] MEDS ORDERED: MIDAZOLAM 1 MG/ML 2 ML INJ ONE (13:28)
[2017-07-18] MEDS ORDERED: IODIXANOL LOCM 100 ML BTL ONE (13:28)
[2017-07-18] MEDS ORDERED: HEPARIN 1000 UNITS/NS (A-LINE) 1,000 ML ONE (13:28)
[2017-07-18] MEDS ORDERED: FENTAnyl 50 MCG/ML VIAL ONE (13:29)
[2017-07-18] MEDS ORDERED: VERAPAMIL 5 MG INJ ONE (13:29)
[2017-07-18] MEDS ORDERED: NITROGLYCERIN (IC) 100 MCG/ML INJ ONE (13:29)
[2017-07-18] MEDS ORDERED: BIVALIRUDIN 250MG /NS 50 ML 50 ML IVPB ONE (14:18)
[2017-07-18] MEDS ORDERED: TICAGRELOR 90 MG TABLET ONE (14:26)
[2017-07-18] MEDS ORDERED: SOD CHLORIDE 0.9% 1,000 ML IV SCH (15:13)
--- NOTE | 2017-07-18 15:17 | CONS ---
DATE OF ADMISSION: 07/17/2017 DATE OF CONSULTATION: 07/18/2017 REASON FOR CONSULTATION: COPD. Thank you, Dr. Khalil, for this consultation. HISTORY OF PRESENT ILLNESS: This is a pleasant 67-year-old gentleman with extensive tobacco history of 1 pack per day for the last 50+ years, still smoking prior to this admission, presents with a 2-month history of intermittent chest pain, worse yesterday, with central pain radiating to his neck and both arms. Pain was intermittent in nature. It was associated with mild shortness of breath and dyspnea on exertion. Denies any nausea or vomiting. No fever or chills. No recent travel history. States he does not use any inhalers for underlying lung disease and is currently not interested in quitting smoking. PAST MEDICAL HISTORY: Hypertension, hyperlipidemia and tobacco use. MEDICATION: Per chart. ALLERGIES: NONE. SOCIAL HISTORY: Positive tobacco history, occasional alcohol, no history of drug use. FAMILY HISTORY: Noncontributory. REVIEW OF SYSTEMS: A 12-point review of systems currently unable to perform. PHYSICAL EXAMINATION: GENERAL: A well-nourished well-developed gentleman, comfortable at rest, no acute distress. VITAL SIGNS: Currently afebrile. Pulse is 57, blood pressure 120/62, O2 saturation 96 percent on room air. NECK: Supple. No JVD or lymphadenopathy. CARDIAC: S1, S2. No added sounds or murmurs. CHEST: Diminished air entry bilaterally but no rales or wheezes. ABDOMEN: Soft, nontender. No guarding or rebound. EXTREMITIES: No cyanosis, clubbing or edema. NEUROLOGICALLY: Grossly intact. No focal deficits. LABORATORY: White count 7.2, hemoglobin 11.1, platelets 217,000. BUN 27, creatinine 1.49. Troponin was 0.225. EKG showed evidence of recent infarct. Chest x-ray was reviewed, shows hyperinflation, bibasilar atelectasis. IMPRESSION AND PLAN: 1. Chest pain concerning for ongoing coronary ischemia with EKG evidence of recent myocardial infarction. 2. Elevated troponins concerning for active angina, non-ST elevation myocardial infarction. 3. Significant tobacco history, likely underlying chronic obstructive pulmonary disease. 4. Essential hypertension. Patient will require: 5. Bronchodilators. 6. Cardiac catheterization. 7. Supplemental O2 as needed. 8. Encourage smoking cessation. 9. DVT and GI prophylaxis. Dictated By: Néstor Dozier MD /wan/eryn /Document#: [id number]
--- NOTE | 2017-07-18 15:27 | OPR ---
Date/Time of Note Date/Time of Note DATE: 07/18/17 TIME: 15:16 Operative Report Free Text/Dictation Procedure Date: 07/18/2017 Procedures Performed: 1)Left heart catheterization with selective left and right coronary angiography. 2)Balloon angioplasty and stenting of the distal RCA with an [place] 2.75 x 15 stent. 3)Balloon angioplasty and stenting of the distal RCA/ostial PLV with a Synergy 2.5 x 12 stent. Pre-operative Diagnosis:NSTEMI, CAD, cardiomyopathy Post-operative Diagnosis:same s/p PCI of RCA Indications: 67 yo M with a h/o HTN, tobacco use who presented to his PMD office complaining of two months of chest pain and was sent to the ED for further management, found to have abnormal EKG, NSTEMI, cardiomyopathy (EF 45%). Cardiac cath for evaluation Description of Procedure: After informed consent, the patient was brought to the cardiac catheterization lab. The procedure site was prepped and draped in usual manner. The patient was premedicated with versed 1mg and fentanyl 25mcg. 2mL lidocaine was injected into the right wrist. Next using the posterior wall technique, the 6/5 canadian sheath was inserted into the right radial artery. Next using the JL3.5 and JR4, selective angiography of the left and right coronary arteries were obtained. The pigtail was then advanced into the ventricle and hemodynamics obtained. Left ventricle angiography was not obtained. The decision was made to proceed with PCI of the RCA as it appeared to be subacute with contrast hangup. A guide was advanced and engaged into the right coronary artery. After appropriate anticoagulation and antiplatelets were given , the PT 2 moderate support angioplasty wire was advanced past the lesion. Next the 2.0 X 12 balloon was used to dilate the lesion times with ARRON 1 flow established and more disease noted distally and in the ostial PL. A 2.0 x 8 balloon was used to dilated the PL lesion. Next a 2.5 x 12 balloon was used to redilate the original lesion. Subsequently a Synergy 2.5 x 12 stent was advanced to the distal RCA/PL lesion and deployed at nominal pressure. Subsequently, the Ren 2.75 x 15 stent was advanced to the distal RCA lesion and deployed at nominal pressure (overlapping). Next the stent was post dilated with the 2.75 X 12 noncompliant balloon times 3 at a maximum of 14 tee. Final angiography revealed ARRON 3 flow, no edge dissection, and appropriate stent expansion. Next all equipment was removed and hemostasis was achieved by TR band. Findings: Anatomy/Hemodynamics: Left main:normal LAD:prox 100% with left-left collaterals Circumflex: mid 40% Obtuse marginal:luminal irregularities RCA:mid-distal 100% with contrast staining/hang-up possible subacute lesion with left-right collaterals LV angiography:not done due to CKD LV-Ao: no gradient LVEDP: 15 mmHg Contrast used: 110mL Fluoroscopy time: 15.6 min Medications used: Versed 1 [id number] Heparin 2000 Angiomax bolus plus drip Ticagrelor 180mg NTG 200 IC verapamil 100 IC Equipment used: 6 canadian IM guide PT 2 moderate support angioplasty wire 2 x 12, 2 x 8, 2.5 x 12 balloon [place] 2.75 x 15 stent. 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
[2017-07-18] MEDS: ALBUTEROL/IPRATROPIUM (NEB) 3 ML AMP HHN SCH (20:00)
[2017-07-18 20:03] LABS: CK-MB 0.93 ng/ml (0.0-2.4); TROPONIN-I 0.354 ng/ml (0.00-0.12)
[2017-07-18] MEDS: TICAGRELOR 90 MG TABLET PO SCH (22:38)
[2017-07-18] MEDS: ATORVASTATIN 40 MG TAB PO SCH (22:39)
[2017-07-18] MEDS: AZITHROMYCIN 500MG/NS (PMX) 250 ML IVPB SCH (23:23)
--- NOTE | 2017-07-18 23:46 | CONS ---
Date/Time of Note Date/Time of Note DATE: 07/18/17 TIME: 23:46 Consultation Date/Type/Reason Admit Date/Time Jul 17, 2017 at 11:47 Initial Consult Date 07/17/17 [facility] Referring Provider: FAWN FERGUSON MD Exam/Review of Systems Vital Signs Vitals Vital Signs Date Time Temp Pulse Resp B/P Pulse Ox O2 Delivery O2 Flow Rate FiO2 07/18/17 22:11 98.3 66 20 123/77 99 07/18/17 21:02 Room Air 07/17/17 23:34 21 Results Result Diagram: 07/18/17 0430 07/17/17 1215 Results 24 hrs Laboratory Tests Test 07/18/17 04:29 07/18/17 04:30 07/18/17 19:05 Absolute Reticulocyte Count 0.042 Percent Reticulocyte Count 1.1 Uric Acid 7.7 Ferritin 144.0 Lactate Dehydrogenase 432 Triglycerides Level 161 H Cholesterol Level 195 LDL Cholesterol, Calculated 136 HDL Cholesterol 27 L Cholesterol/HDL Ratio 7.2 Carcinoembryonic Antigen 1.4 Vitamin B12 Level 331 Folate > 20.0 H Thyroid Stimulating Hormone (TSH) 1.740 White Blood Count 7.2 Red Blood Count 3.92 L Hemoglobin 11.1 L Hematocrit 34.3 L Mean Corpuscular Volume 87.5 Mean Corpuscular Hemoglobin 28.3 L Mean Corpuscular Hemoglobin Concent 32.4 Red Cell Distribution Width 15.1 H Platelet Count 217 Mean Platelet Volume 9.9 Neutrophils % 49.7 Lymphocytes % 41.0 Monocytes % 6.9 Eosinophils % 1.5 Basophils % 0.6 Nucleated Red Blood Cells % 0.0 Neutrophils # (Manual) 3.6 Lymphocytes # 2.9 Monocytes # 0.5 Eosinophils # 0.1 Basophils # 0.0 Nucleated Red Blood Cells # 0.0 Erythrocyte Sedimentation Rate 47 H Iron Level 37 Total Iron Binding Capacity 254 Percent Iron Saturation 15 L Creatine Kinase 59 78 Creatine Kinase Index 1.9 1.2 Creatinine Kinase MB (Mass) 1.15 0.93 Troponin I 0.225 *H 0.354 *H Medications Medications Current Medications Lorazepam (Ativan) 0.5 mg Q6H PRN PO ANXIETY; Start 07/17/17 at 15:00 Atorvastatin Calcium (Lipitor) 40 mg HS PO Last administered on 07/18/17t 22:39 ; Admin Dose 40 MG; Start 07/17/17 at 21:00 Nitroglycerin (Nitroglycerin (Sl Tab) 0.4 Mg) 1 tab Q5M PRN SL ANGINA; Start at 15:00 Enalapril Maleate (Vasotec) 2.5 mg BID PO Last administered on 07/18/17 09:40; Admin Dose 2.5 MG; Start 07/17/17 at 21:00 Pantoprazole (Protonix Tab) 40 mg DAILY@06 PO Last administered on 07/18/17 05: 45; Admin Dose 40 MG; Start 07/18/17 at 06:00 Enoxaparin Sodium (Lovenox) 40 mg BID SC Last administered on 07/18/17 22:39; Admin Dose 40 MG; Start 07/17/17 at 21:00 Acetaminophen (Tylenol Tab) 500 mg Q6H PRN PO PAIN AND OR ELEVATED TEMP; Start 07/17/17 at 15:00 Fenofibrate (Tricor) 145 mg DAILY PO Last administered on 07/18/17 09:39; Admin Dose 145 MG; Start 07/18/17 at 09:00 Carvedilol (Coreg) 3.125 mg BID PO Last administered on 07/17/17 22:43; Admin Dose 3.125 MG; Start 07/17/17 at 16:30 Nicotine 1 patch 1 patch DAILY TRANSDERM Last administered on 07/18/17 09:42; Admin Dose 1 PATCH; Start 07/17/17 at 20:30 Azithromycin (Zithromax 500mg/ NS (Pmx)) 250 ml @ 250 mls/hr Q24H IVPB Last administered on 07/18/17 23:23; Admin Dose 250 MLS/HR; Start 07/17/17 at 20:30; Stop 07/19/17 at 20:29 Aspirin (Halfprin) 81 mg DAILY PO Last administered on 07/18/17 11:17; Admin Dose 81 MG; Start 07/18/17 at 09:47 Ticagrelor (Brilinta) 90 mg BID PO Last administered on 07/18/17 22:38; Admin Dose 90 MG; Start 07/18/17 at 21:00 BARBER BUITRAGO MD Jul 18, 2017 23:46
[2017-07-19] VITALS (13 sets, daily range): BP systolic 107–132; BP diastolic 51–71; PULSE 56–69; RESP 16–21
[2017-07-19 02:52] LABS: PROTEIN, TOTAL 6.5 g/dL (6.1-8.1)
[2017-07-19] MEDS: PANTOPRAZOLE (EC) 40 MG TAB PO SCH (05:54)
[2017-07-19] MEDS: ALBUTEROL/IPRATROPIUM (NEB) 3 ML AMP HHN SCH ×3 (08:00→19:44)
--- NOTE | 2017-07-19 09:17 | PN ---
Date/Time of Note Date/Time of Note DATE: 07/19/17 TIME: 09:14 Assessment/Plan VTE Prophylaxis VTE Prophylaxis Intervention: ambulation, anti-embolic stocking VTE Contraindication Reason: peripheral vascular disease Lines/Catheters IV Catheter Type (from Nrsg): [place] [employer] line still needed: No Urinary Cath still in place: No Reason Cath still needed: urinary retention Assessment/Plan Assessment/Plan 1.IHD angina s/p acute mi; Multivessel disease s/p PTCA with stenting 2.HTN with mild chf 3.Dyslipidemia 4.Worsening of COPD-more sputum production. 5.heavy smoker for more than 40 years 6Hx of PUD 7.PAD 8.Nicotine addiction 9.Weight loss 10.Memory impairment 11.BPH 12.Dizziness 13.Noncompliance to meds. 14.Anemia with decreased iron level getting worse. 15.Hx of cva with left weakness more than 10 years ago, recovered well 16.Anxiety Cont'd Hospitalization Reason: s/p ptca. Subjective 24 Hr Interval Summary Free Text/Dictation I feel much better. Increased sputum production with now more clear than before sputum production. Constitutional: improved, no complaints, No chills, No diaphoresis, No disoriented, No febrile, No other, No poor po, No requiring IVF, No requiring O2 Eyes: No discharge, No no complaints, No other, No pain, No redness, No visual change ENT: No bleeding, No congestion, No discharge, No dysphagia, No no complaints, No other, No pain, No sore throat Respiratory: cough, sputum, No no complaints, No other, No pain, No pleuritic pain, No shortness of breath, No wheezing Cardiovascular: No chest pain, No edema, No lightheadedness, No no complaints, No orthopenea, No other, No palpitations, No paroxysmal nocturnal dyspnea Gastrointestinal: constipation, flatus, No blood, No decreased appetite, No diarrhea, No nausea, No no complaints, No other, No pain, No passing stool, No vomiting Genitourinary: dysuria, No bleeding, No discharge, No flank pain, No hematuria, No no complaints, No other Musculoskeletal: back pain, No bone/joint pain, No neck pain, No no complaints, No other, No restricted range of motion, No swelling Neurologic: No confusion, No dizziness, No focal-weakness, No headache, No no complaints, No other, No seizure, No syncope Endocrine: dry skin, No no complaints, No other, No polydypsia, No polyuria, No temp intolerance Lymphatic: No adenopathy, No lymphadema, No no complaints, No other, No tender nodes Psychological: anxiety Exam/Review of Systems Vital Signs Vitals Vital Signs Date Time Temp Pulse Resp B/P Pulse Ox O2 Delivery O2 Flow Rate FiO2 07/19/17 08:31 56 07/19/17 07:57 98.1 21 126/70 98 07/18/17 21:02 Room Air 07/17/17 23:34 21 Intake and Output 07/18/17 07/18/17 07/19/17 15:00 23:00 07:00 Intake Total 750 ml Balance 750 ml Exam Constitutional: alert, frail, oriented, well developed, No distress, No non-verbal, No obese, No other Psych: anxiety, nl mood/affect, no complaints, No confusion, No depression, No other, No suicidal Head: atraumatic, normocephalic, No hematomas, No lacerations, No other Eyes: EOMI, PERRL, nl conjunctiva, nl lids, No fundi, disc, No icteric, No nl sclera, No other ENMT: nl external ears & nose, tympanic membranes, No intubated, No mucosa pink and moist, No nl lips & teeth, No nl nasal mucosa & septum, No other Neck: bruits, supple, No jvd, No masses, No non-tender, No nuchal rigidity, No other, No thyromegaly Respiratory: clear to auscultation, congested cough, normal air movement Cardiovascular: bruits, nl pulses, regular rate and rhythm, systolic murmur, No S3, No S4, No diastolic murmur, No edema, No gallop, No irregular rhythm, No jugular venous distention (JVD), No murmurs/extra sounds, No other, No rub Gastrointestinal: bowel sounds, soft, No ascites, No distended, No firm, No hepatomegaly, No mass, No nl liver, spleen, No non-tender, No other, No rebound or guarding, No splenomegaly, No surgical scars, No tender Genitourinary - Male: nl penis, nl scrotum, No CVA tenderness, No discharge, No other Musculoskeletal: joint tenderness, muscle tone, muscle weakness, No nl extremities to inspection, No nl gait and stance, No other, No range of motion, No spine non-tender, No swelling Neurological: ENVIRONMENTAL SYSTEMS COORDINATOR II-XII intact, nl speech, nl strength (decreased.) Skin: diaphoresis, nl turgor, No ecchymosis, No laceration, No other, No puncture, No rash or lesions Lymph: No enlarged, No nl lymph nodes, No nontender, No other Results Result Diagram: 07/18/17 0430 07/17/17 1215 Results 24 hrs Laboratory Tests Test 07/18/17 19:05 Creatine Kinase 78 Creatine Kinase Index 1.2 Creatinine Kinase MB (Mass) 0.93 Troponin I 0.354 *H Medications Medications Current Medications Lorazepam (Ativan) 0.5 mg Q6H PRN PO ANXIETY; Start 07/17/17 at 15:00 Atorvastatin Calcium (Lipitor) 40 mg HS PO Last administered on 07/18/17 22:39 ; Admin Dose 40 MG; Start 07/17/17 at 21:00 Nitroglycerin (Nitroglycerin (Sl Tab) 0.4 Mg) 1 tab Q5M PRN SL ANGINA; Start at 15:00 Enalapril Maleate (Vasotec) 2.5 mg BID PO Last administered on 07/18/17 09:40; Admin Dose 2.5 MG; Start 07/17/17 at 21:00 Pantoprazole (Protonix Tab) 40 mg DAILY@06 PO Last administered on 07/19/17 05: 54; Admin Dose 40 MG; Start 07/18/17 at 06:00 Enoxaparin Sodium (Lovenox) 40 mg BID SC Last administered on 07/18/17 22:39; Admin Dose 40 MG; Start 07/17/17 at 21:00 Acetaminophen (Tylenol Tab) 500 mg Q6H PRN PO PAIN AND OR ELEVATED TEMP; Start 07/17/17 at 15:00 Fenofibrate (Tricor) 145 mg DAILY PO Last administered on 07/18/17 09:39; Admin Dose 145 MG; Start 07/18/17 at 09:00 Carvedilol (Coreg) 3.125 mg BID PO Last administered on 07/17/17 22:43; Admin Dose 3.125 MG; Start 07/17/17 at 16:30 Nicotine 1 patch 1 patch DAILY TRANSDERM Last administered on 07/18/17 09:42; Admin Dose 1 PATCH; Start 07/17/17 at 20:30 Azithromycin (Zithromax 500mg/ NS (Pmx)) 250 ml @ 250 mls/hr Q24H IVPB Last administered on 07/18/17 23:23; Admin Dose 250 MLS/HR; Start 07/17/17 at 20:30; Stop 07/19/17 at 20:29 Aspirin (Halfprin) 81 mg DAILY PO Last administered on 07/18/17 11:17; Admin Dose 81 MG; Start 07/18/17 at 09:47 Ticagrelor (Brilinta) 90 mg BID PO Last administered on 07/18/17 22:38; Admin Dose 90 MG; Start 07/18/17 at 21:00 FAWN FERGUSON MD Jul 19, 2017 09:17
--- NOTE | 2017-07-19 09:25 | RADRPT ---
PROCEDURE: US Carotids. CLINICAL INDICATION: bruit , evaluate bilateral carotids TECHNIQUE: Multiple sonographic of the carotid bifurcation region and vertebral arteries were obta ined utilizing espinoza scale, duplex and color-flow imaging. The images were reviewed on a PACS worksta tion. COMPARISON: No prior studies are available for comparison. FINDINGS: Evaluation of the right carotid bifurcation region reveals mild calcific atherosclerotic disease. Th ere is a 38% stenosis in the right common carotid artery. Evaluation of the left carotid bifurcation region reveals mild to moderate calcific atherosclerotic disease. . There is a 41% stenosis in the left common carotid artery. There is antegrade flow within the vertebral arteries bilaterally. RIGHT CAROTID MEASUREMENTS: Common Carotid Fxqlqg62.9 (cm/sec) Internal Carotid Artery - pmaiudwm74.5 (cm/sec) Internal Carotid Artery - mid44.8 (cm/sec) Internal Carotid Artery - tsddew50.9 (cm/sec) Internal Carotid/Common Carotid1.08 LEFT CAROTID MEASUREMENTS: Common Carotid Okmtmr51.6 (cm/sec) Internal Carotid Artery - ygbpatia19.7 (cm/sec) Internal Carotid Artery - kmc010.4 (cm/sec) Internal Carotid Artery - dcminh652.8 (cm/sec) Internal Carotid/Common Carotid2.38 RPTAT: AA IMPRESSION: 50-69% stenosis in the left ICA. - validated velocity measurements with angiographic measurements, v elocity criteria are extrapolated from diameter data as defined by the Society of Radiologists in Ul trasound Consensus Conference Radiology 2003; 229;340-346. This study does indirectly reference the measurement of the distal ICA diameter as the denominator for stenosis measurement. Normal antegrade flow in the vertebral arteries bilaterally. .Jonah Ryan MD, Date Time Electronically viewed and signed by .Jonah Ryan MD, MD on 07/19/2017 09:24 .S/
--- NOTE | 2017-07-19 09:57 | CONS ---
Date/Time of Note Date/Time of Note DATE: 07/19/17 TIME: 09:52 Assessment/Plan Assessment/Plan Chief Complaint/Hosp Course NSTEMI: s/p cath 07/18 with PCI of occluded RCA (likely subacute). 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 Ischemic cardiomyopathy: EF 45% with apical/septal WMA likely from prior CT but PDA was also a long vessel and travels to the apex. Euvolemic CKD: unknown baseline but per pt he has a h/o CKD HTN Tobacco use -pt to ambulate around the unit multiple times. If completely asymptomatic, ok to go home and f/u with me next week with plan for staged PCI of LAD in 2 weeks. If recurrent symptoms, PCI of LAD likely Sunday to allow for renal function to remain stable (check labs today) -continue ASA 81mg lifelong -ticagrelor 90mg BID at least one year -lipitor -coreg 3.125mg BID Problems: Consultation Date/Type/Reason Admit Date/Time Jul 17, 2017 at 11:47 Initial Consult Date 07/17/17 Type of Consultation: Cardiology Referring Provider: FAWN FERGUSON MD 24 HR Interval Summary Free Text/Dictation S/p PCI of RCA yesterday. Doing well. Exercised in his room as per his normal am routine and denies CP or SOB. Exam/Review of Systems Vital Signs Vitals Vital Signs Date Time Temp Pulse Resp B/P Pulse Ox O2 Delivery O2 Flow Rate FiO2 07/19/17 08:31 56 07/19/17 07:57 98.1 21 126/70 98 07/18/17 21:02 Room Air 07/17/17 23:34 21 Intake and Output 07/18/17 07/18/17 07/19/17 15:00 23:00 07:00 Intake Total 750 ml Balance 750 ml Exam Constitutional: alert, oriented Psych: nl mood/affect, no complaints Head: atraumatic, normocephalic Neck: supple, No jvd Respiratory: clear to auscultation, No crackles/rales Cardiovascular: regular rate and rhythm, No edema Gastrointestinal: non-tender, soft Neurological: nl mental status, nl speech Results Result Diagram: 07/18/17 0430 07/17/17 1215 Results 24 hrs Laboratory Tests Test 07/18/17 19:05 Creatine Kinase 78 Creatine Kinase Index 1.2 Creatinine Kinase MB (Mass) 0.93 Troponin I 0.354 *H Medications Medications Current Medications Lorazepam (Ativan) 0.5 mg Q6H PRN PO ANXIETY; Start 07/17/17 at 15:00 Atorvastatin Calcium (Lipitor) 40 mg HS PO Last administered on 07/18/17 22:39 ; Admin Dose 40 MG; Start 07/17/17 at 21:00 Nitroglycerin (Nitroglycerin (Sl Tab) 0.4 Mg) 1 tab Q5M PRN SL ANGINA; Start at 15:00 Enalapril Maleate (Vasotec) 2.5 mg BID PO Last administered on 07/18/17 09:40; Admin Dose 2.5 MG; Start 07/17/17 at 21:00 Pantoprazole (Protonix Tab) 40 mg DAILY@06 PO Last administered on 07/19/17 05: 54; Admin Dose 40 MG; Start 07/18/17 at 06:00 Enoxaparin Sodium (Lovenox) 40 mg BID SC Last administered on 07/18/17 22:39; Admin Dose 40 MG; Start 07/17/17 at 21:00 Acetaminophen (Tylenol Tab) 500 mg Q6H PRN PO PAIN AND OR ELEVATED TEMP; Start 07/17/17 at 15:00 Fenofibrate (Tricor) 145 mg DAILY PO Last administered on 07/18/17 09:39; Admin Dose 145 MG; Start 07/18/17 at 09:00 Carvedilol (Coreg) 3.125 mg BID PO Last administered on 07/17/17 22:43; Admin Dose 3.125 MG; Start 07/17/17 at 16:30 Nicotine 1 patch 1 patch DAILY TRANSDERM Last administered on 07/18/17 09:42; Admin Dose 1 PATCH; Start 07/17/17 at 20:30 Azithromycin (Zithromax 500mg/ NS (Pmx)) 250 ml @ 250 mls/hr Q24H IVPB Last administered on 07/18/17 23:23; Admin Dose 250 MLS/HR; Start 07/17/17 at 20:30; Stop 07/19/17 at 20:29 Aspirin (Halfprin) 81 mg DAILY PO Last administered on 07/18/17 11:17; Admin Dose 81 MG; Start 07/18/17 at 09:47 Ticagrelor (Brilinta) 90 mg BID PO Last administered on 07/18/17 22:38; Admin Dose 90 MG; Start 07/18/17 at 21:00 SHELLY FELICIANO Jul 19, 2017 09:57
[2017-07-19] MEDS: NICOTINE (7 MG/24 HR) PATCH TRANSDERM SCH (10:08)
[2017-07-19] MEDS: FENOFIBRATE 145 MG TAB PO SCH (10:09)
[2017-07-19] MEDS: ASPIRIN (EC) 81 MG TAB PO SCH (10:09)
[2017-07-19] MEDS: ENALAPRIL 2.5 MG TAB PO SCH ×2 (10:11→21:17)
[2017-07-19] MEDS: ENOXAPARIN 40 MG/0.4 ML SYG SC SCH ×2 (10:33→21:23)
[2017-07-19] MEDS: TICAGRELOR 90 MG TABLET PO SCH ×2 (10:34→21:26)
--- NOTE | 2017-07-19 11:13 | CONS ---
Date/Time of Note Date/Time of Note DATE: 07/19/17 TIME: 11:11 Consult Date/Type/Reason Admit Date/Time Jul 17, 2017 at 11:47 Initial Consult Date 07/17/17 Reason for Consultation pulm Ordering Provider: FAWN FERGUSON MD Subjective Denies chest pain or shortness of breath. Status post cardiac catheterization. Objective Vital Signs Date Time Temp Pulse Resp B/P Pulse Ox O2 Delivery O2 Flow Rate FiO2 07/19/17 08:31 56 07/19/17 07:57 98.1 21 126/70 98 07/18/17 21:02 Room Air 07/17/17 23:34 21 Intake and Output 07/18/17 07/18/17 07/19/17 15:00 23:00 07:00 Intake Total 750 ml Balance 750 ml Exam GENERAL: Well-nourished well-developed gentleman comfortable at rest no acute distress VITAL SIGNS: per chart NECK: Supple. No JVD or lymphadenopathy. CARDIAC EXAM: S1, S2. No added sounds or murmurs. CHEST: clear bilaterally, No added sounds, rales or wheezes ABDOMEN: Soft, nontender. No guarding or rebound. EXTREMITIES: No cyanosis, clubbing or edema. NEUROLOGIC: Generalized weakness. No focal deficits. Results/Medications Result Diagram: 07/18/17 0430 07/17/17 1215 Results 24 hrs Laboratory Tests Test 07/18/17 19:05 Creatine Kinase 78 Creatine Kinase Index 1.2 Creatinine Kinase MB (Mass) 0.93 Troponin I 0.354 *H Medications Current Medications Lorazepam (Ativan) 0.5 mg Q6H PRN PO ANXIETY; Start 07/17/17 at 15:00 Atorvastatin Calcium (Lipitor) 40 mg HS PO Last administered on 07/18/17 22:39 ; Admin Dose 40 MG; Start 07/17/17 at 21:00 Nitroglycerin (Nitroglycerin (Sl Tab) 0.4 Mg) 1 tab Q5M PRN SL ANGINA; Start at 15:00 Enalapril Maleate (Vasotec) 2.5 mg BID PO Last administered on 07/19/17 10:11; Admin Dose 2.5 MG; Start 07/17/17 at 21:00 Pantoprazole (Protonix Tab) 40 mg DAILY@06 PO Last administered on 07/19/17 05: 54; Admin Dose 40 MG; Start 07/18/17 at 06:00 Enoxaparin Sodium (Lovenox) 40 mg BID SC Last administered on 07/19/17 10:33; Admin Dose 40 MG; Start 07/17/17 at 21:00 Acetaminophen (Tylenol Tab) 500 mg Q6H PRN PO PAIN AND OR ELEVATED TEMP; Start 07/17/17 at 15:00 Fenofibrate (Tricor) 145 mg DAILY PO Last administered on 07/19/17 10:09; Admin Dose 145 MG; Start 07/18/17 at 09:00 Carvedilol (Coreg) 3.125 mg BID PO Last administered on 07/19/17 10:10; Admin Dose 3.125 MG; Start 07/17/17 at 16:30 Nicotine 1 patch 1 patch DAILY TRANSDERM Last administered on 07/19/17 10:08; Admin Dose 1 PATCH; Start 07/17/17 at 20:30 Azithromycin (Zithromax 500mg/ NS (Pmx)) 250 ml @ 250 mls/hr Q24H IVPB Last administered on 07/18/17 23:23; Admin Dose 250 MLS/HR; Start 07/17/17 at 20:30; Stop 07/19/17 at 20:29 Aspirin (Halfprin) 81 mg DAILY PO Last administered on 07/19/17 10:09; Admin Dose 81 MG; Start 07/18/17 at 09:47 Ticagrelor (Brilinta) 90 mg BID PO Last administered on 07/19/17 10:34; Admin Dose 90 MG; Start 07/18/17 at 21:00 Assessment/Plan Chief Complaint/Hosp Course Assessment 1. Non-STEMI. Significant cardiac disease on recent cardiac catheterization intervention as noted 2. Procedures Performed: 1)Left heart catheterization with selective left and right coronary angiography. 2)Balloon angioplasty and stenting of the distal RCA with an [place] 2.75 x 15 stent. 3)Balloon angioplasty and stenting of the distal RCA/ostial PLV with a [place] 2.5 x 12 stent. 2. Ongoing tobacco history. Likely underlying mild to moderate COPD 3. Mild renal insufficiency Plan 1. Continue cardiac recommendations post intervention 2. Encourage smoking cessation 3. Continue hydration Discharge when cleared by cardiology Problems: PEDRO FONTANA MD, [facility] Jul 19, 2017 11:13
[2017-07-19 12:51] LABS: HEMATOCRIT 35.1 % (42.0-52.0); MEAN CORPUSCULAR HEMOGLOBIN 27.6 pg (29.0-33.0); MEAN CORPUSCULAR HGB CONC 31.3 g/dl (32.0-37.0); MEAN PLATELET VOLUME 9.6 fl (7.4-10.4); PLATELET COUNT 233 10^3/UL (140-415); RED BLOOD COUNT 3.99 10^6/ul (4.70-6.10); RED CELL DISTRIBUTION WIDTH 15.1 % (11.5-14.5); WHITE BLOOD COUNT 6.7 10^3/ul (4.8-10.8)
[2017-07-19 12:52] LABS: BASOPHILS % 0.4 % (0.0-2.0); EOSINOPHILS # 0.1 10^3/ul (0.0-0.5); EOSINOPHILS % 1.2 % (0.0-7.0); LYMPHOCYTES # 2.2 10^3/ul (0.8-2.9); MONOCYTE # 0.6 10^3/ul (0.3-0.9); MONOCYTES % 8.5 % (0.0-11.0); NEUTROPHILS % 56.8 % (39.0-77.0)
[2017-07-19 12:57] LABS: CALCIUM 9.2 mg/dl (8.4-10.2); CREATININE 1.41 mg/dl (0.61-1.24); POTASSIUM 4.1 mmol/L (3.5-5.1)
[2017-07-19 19:31] LABS: ALBUMIN 3.6 g/dL (3.8-4.8)
[2017-07-19] MEDS: ATORVASTATIN 40 MG TAB PO SCH (21:17)
--- NOTE | 2017-07-19 21:25 | CONS ---
Date/Time of Note Date/Time of Note DATE: 07/19/17 TIME: 21:25 Consultation Date/Type/Reason Admit Date/Time Jul 17, 2017 at 11:47 Initial Consult Date 07/17/17 [facility] Referring Provider: FAWN FERGUSON MD Exam/Review of Systems Vital Signs Vitals Vital Signs Date Time Temp Pulse Resp B/P Pulse Ox O2 Delivery O2 Flow Rate FiO2 07/19/17 20:16 68 07/19/17 19:26 98.1 16 132/71 100 07/18/17 21:02 Room Air 07/17/17 23:34 21 Intake and Output 07/18/17 07/18/17 07/19/17 14:59 22:59 06:59 Intake Total 750 ml Balance 750 ml Results Result Diagram: 07/19/17 1152 07/19/17 1152 Results 24 hrs Laboratory Tests Test 07/19/17 11:52 White Blood Count 6.7 Red Blood Count 3.99 L Hemoglobin 11.0 L Hematocrit 35.1 L Mean Corpuscular Volume 88.0 Mean Corpuscular Hemoglobin 27.6 L Mean Corpuscular Hemoglobin Concent 31.3 L Red Cell Distribution Width 15.1 H Platelet Count 233 Mean Platelet Volume 9.6 Neutrophils % 56.8 Lymphocytes % 33.0 Monocytes % 8.5 Eosinophils % 1.2 Basophils % 0.4 Nucleated Red Blood Cells % 0.0 Neutrophils # (Manual) 3.8 Lymphocytes # 2.2 Monocytes # 0.6 Eosinophils # 0.1 Basophils # 0.0 Nucleated Red Blood Cells # 0.0 Sodium Level 142 Potassium Level 4.1 Chloride Level 107 Carbon Dioxide Level 28 Anion Gap 11 Blood Urea Nitrogen 23 H Creatinine 1.41 H Glucose Level 81 Calcium Level 9.2 Medications Medications Current Medications Lorazepam (Ativan) 0.5 mg Q6H PRN PO ANXIETY; Start 07/17/17 at 15:00 Atorvastatin Calcium (Lipitor) 40 mg HS PO Last administered on 07/18/17t 22:39 ; Admin Dose 40 MG; Start 07/17/17 at 21:00 Nitroglycerin (Nitroglycerin (Sl Tab) 0.4 Mg) 1 tab Q5M PRN SL ANGINA; Start at 15:00 Enalapril Maleate (Vasotec) 2.5 mg BID PO Last administered on 07/19/17 10:11; Admin Dose 2.5 MG; Start 07/17/17 at 21:00 Pantoprazole (Protonix Tab) 40 mg DAILY@06 PO Last administered on 07/19/17 05: 54; Admin Dose 40 MG; Start 07/18/17 at 06:00 Enoxaparin Sodium (Lovenox) 40 mg BID SC Last administered on 07/19/17 21:23; Admin Dose 40 MG; Start 07/17/17 at 21:00 Acetaminophen (Tylenol Tab) 500 mg Q6H PRN PO PAIN AND OR ELEVATED TEMP; Start 07/17/17 at 15:00 Fenofibrate (Tricor) 145 mg DAILY PO Last administered on 07/19/17 10:09; Admin Dose 145 MG; Start 07/18/17 at 09:00 Carvedilol (Coreg) 3.125 mg BID PO Last administered on 07/19/17 10:10; Admin Dose 3.125 MG; Start 07/17/17 at 16:30 Nicotine (Nicoderm 7 Mg/ 24 Hr) 1 patch DAILY TRANSDERM Last administered on 10:08; Admin Dose 1 PATCH; Start 07/17/17 at 20:30 Aspirin (Halfprin) 81 mg DAILY PO Last administered on 07/19/17 10:09; Admin Dose 81 MG; Start 07/18/17 at 09:47 Ticagrelor (Brilinta) 90 mg BID PO Last administered on 07/19/17 10:34; Admin Dose 90 MG; Start 07/18/17 at 21:00 BARBER BUITRAGO MD Jul 19, 2017 21:25
[2017-07-20 00:25] VITALS: PULSE 64
[2017-07-20 04:21] VITALS: PULSE 70
[2017-07-20 05:15] VITALS: BP 119/72; RESP 16
[2017-07-20] MEDS: PANTOPRAZOLE (EC) 40 MG TAB PO SCH (06:21)
[2017-07-20 07:10] VITALS: BP 107/61; RESP 16
[2017-07-20] MEDS: ALBUTEROL/IPRATROPIUM (NEB) 3 ML AMP HHN SCH (08:00)
[2017-07-20] MEDS: ASPIRIN (EC) 81 MG TAB PO SCH (08:16)
[2017-07-20] MEDS: FENOFIBRATE 145 MG TAB PO SCH (08:18)
[2017-07-20] MEDS: NICOTINE (7 MG/24 HR) PATCH TRANSDERM SCH (08:18)
[2017-07-20] MEDS: ENALAPRIL 2.5 MG TAB PO SCH (08:18)
[2017-07-20] MEDS: TICAGRELOR 90 MG TABLET PO SCH (08:33)
[2017-07-20] MEDS: ENOXAPARIN 40 MG/0.4 ML SYG SC SCH (08:33)
[2017-07-20 08:38] VITALS: PULSE 66
--- NOTE | 2017-07-20 09:17 | DS ---
Date/Time of Note Date/Time of Note DATE: 07/20/17 TIME: 09:04 Discharge Summary Admission/Discharge Info Admit Date/Time Jul 17, 2017 at 11:47 Discharge Date/Time 07/20/2017. 10am. Discharge Diagnosis 1. Non-STEMI. S/p cardiac catheterization intervention as not.IHD angina s/ p acute mi;Multivessel disease s/p PTCA with stenting of RCA.Total occlusion of the LAD.Planned next procedure in 2-3 weeks 2.HTN with mild chf- now normo to hypotensive. 3.Dyslipidemia 4.Worsening of COPD-more sputum production;4-th day without cigarette in 55 years. 5.heavy smoker for more than 50 years 6Hx of PUD 7.PAD-narrowing of both carotid arteries by Doppler.50-69% stenosis in the left ICA. - validated velocity measurements with angiographic measurements, velocity criteria are extrapolated from diameter data as defined by the Society of Radiologists in Ultrasound Consensus Conference Radiology 2003; 229;340-346. This study does indirectly reference the measurement of the distal ICA diameter as the denominator for stenosis measurement. 8.Nicotine addiction 9.Weight loss 10.Memory impairment 11.BPH 12.Dizziness 13.Noncompliance to meds. 14.Anemia with decreased iron level getting worse. 15.Hx of cva with left weakness more than 10 years ago, recovered well 16.Anxiety 17.CKD with exacerbation after contrast. Continue hydration and monitoring. Procedures Performed: 1)Left heart catheterization with selective left and right coronary angiography. 2)Balloon angioplasty and stenting of the distal RCA with an Ren 2.75 x 15 stent. 3)Balloon angioplasty and stenting of the distal RCA/ostial PLV with a Synergy 2.5 x 12 stent. 2. Ongoing tobacco history. Likely underlying mild to moderate COPD 3. Mild renal insufficiency Plan 1. Continue cardiac recommendations post intervention 2. Encourage smoking cessation 3. Continue hydration Patient Condition: Fair Procedures Angiography PTCA Doppler. Hx of Present Illness CP on and off last 2 months. Now with more pressure sensation and worsening of sob. ECG in the office had shown diffuse anterio-septo and lateral st-t changes.No pvc's; Referred to er and asked to evaluate the patient. Hx of CVA with the HX of pud . Hospital Course Assessment 1. Non-STEMI. Significant cardiac disease on recent cardiac catheterization intervention as noted 2. Procedures Performed: 1)Left heart catheterization with selective left and right coronary angiography. 2)Balloon angioplasty and stenting of the distal RCA with an Ren 2.75 x 15 stent. 3)Balloon angioplasty and stenting of the distal RCA/ostial PLV with a Synergy 2.5 x 12 stent. 2. Ongoing tobacco history. Likely underlying mild to moderate COPD 3. Mild renal insufficiency Plan 1. Continue cardiac recommendations post intervention 2. Encourage smoking cessation 3. Continue hydration Discharge when cleared by cardiology Follow-up Plan in [address] Ferguson in 12 days. Primary Care Provider Jaun Ferguson MD Time spent on discharge: > 30 minutes Pending Labs Laboratory Tests Test 07/19/17 11:52 07/19/17 22:50 White Blood Count 6.710^3/ul (4.8-10.8) Red Blood Count 3.9910^6/ul (4.70-6.10) Hemoglobin 11.0g/dl (14.0-18.0) Hematocrit 35.1% (42.0-52.0) Mean Corpuscular Volume 88.0fl (82.0-101.0) Mean Corpuscular Hemoglobin 27.6pg (29.0-33.0) Mean Corpuscular Hemoglobin Concent 31.3g/dl (32.0-37.0) Red Cell Distribution Width 15.1% (11.5-14.5) Platelet Count 97334^3/UL (140-415) Mean Platelet Volume 9.6fl (7.4-10.4) Neutrophils % 56.8% (39.0-77.0) Lymphocytes % 33.0% (15.0-51.0) Monocytes % 8.5% (0.0-11.0) Eosinophils % 1.2% (0.0-7.0) Basophils % 0.4% (0.0-2.0) Nucleated Red Blood Cells % 0.0/100WBC (0.0-0.0) Neutrophils # (Manual) 3.810^3/ul (1.7-7.5) Lymphocytes # 2.210^3/ul (0.8-2.9) Monocytes # 0.610^3/ul (0.3-0.9) Eosinophils # 0.110^3/ul (0.0-0.5) Basophils # 0.010^3/ul (0.0-0.1) Nucleated Red Blood Cells # 0.010^3/ul (0.0-0.0) Sodium Level 142mmol/L (135-144) Potassium Level 4.1mmol/L (3.5-5.1) Chloride Level 107mmol/L (97-110) Carbon Dioxide Level 28mmol/L (21-31) Anion Gap 11 (8-16) Blood Urea Nitrogen 23mg/dl (7-20) Creatinine 1.41mg/dl (0.61-1.24) Glucose Level 81mg/dl (70-220) Calcium Level 9.2mg/dl (8.4-10.2) Stool Occult Blood NEGATIVE (NEGATIVE) JAUN FERGUSON MD Jul 20, 2017 09:14
[2017-07-20] MEDS ORDERED: TYL500 PO (09:29)
[2017-07-20] MEDS ORDERED: ENAL2.5T PO (09:29)
[2017-07-20] MEDS ORDERED: FENO145T19 PO (09:29)
[2017-07-20] MEDS ORDERED: ASPI-664 PO (09:29)
[2017-07-20] MEDS ORDERED: CARV3.1260 PO (09:29)
[2017-07-20] MEDS ORDERED: ATOR40TA68 PO (09:29)
[2017-07-20] MEDS ORDERED: LORA-441 PO (09:29)
[2017-07-20] MEDS ORDERED: IPRA3AMP HHN (09:29)
[2017-07-20] MEDS ORDERED: NIT4 SL (09:29)
[2017-07-20] MEDS ORDERED: NICO1PAT19 TRANSDERM (09:29)
[2017-07-20] MEDS ORDERED: TICA90TA PO (09:29)
[2017-07-20] MEDS ORDERED: PANT40TA4 PO (09:29)
--- NOTE | 2017-07-20 14:08 | CONS ---
Date/Time of Note Date/Time of Note DATE: 07/20/17 TIME: 10:08 vk le Consultation Date/Type/Reason Admit Date/Time Jul 17, 2017 at 11:47 Initial Consult Date 07/17/17 [facility] Referring Provider: FAWN FERGUSON MD Exam/Review of Systems Vital Signs Vitals Vital Signs Date Time Temp Pulse Resp B/P Pulse Ox O2 Delivery O2 Flow Rate FiO2 07/20/17 08:38 66 07/20/17 07:10 98.3 16 107/61 100 07/18/17 21:02 Room Air 07/17/17 23:34 21 Intake and Output 07/19/17 07/19/17 07/20/17 14:59 22:59 06:59 Intake Total 600 ml 400 ml Output Total 600 ml Balance 600 ml -200 ml Results Result Diagram: 07/19/17 1152 07/19/17 1152 Results 24 hrs Laboratory Tests Test 07/19/17 22:50 Stool Occult Blood NEGATIVE BARBER BUITRAGO MD Jul 20, 2017 14:08
--- NOTE | 2017-07-20 14:34 | CONS ---
Date/Time of Note Date/Time of Note DATE: 07/20/17 TIME: 14:34 Consult Date/Type/Reason Admit Date/Time Jul 17, 2017 at 11:47 Initial Consult Date 07/17/17 Type of Consultation: Pulmonary Ordering Provider: FAWN FERGUSON MD Subjective Patient seen this morning no new events. Denies chest pain or shortness of breath. Objective Vital Signs Date Time Temp Pulse Resp B/P Pulse Ox O2 Delivery O2 Flow Rate FiO2 07/20/17 08:38 66 07/20/17 07:10 98.3 16 107/61 100 07/18/17 21:02 Room Air 07/17/17 23:34 21 Intake and Output 07/19/17 07/19/17 07/20/17 15:00 23:00 07:00 Intake Total 600 ml 400 ml Output Total 600 ml Balance 600 ml -200 ml Exam GENERAL: Well-nourished well-developed gentleman comfortable at rest no acute distress VITAL SIGNS: per chart NECK: Supple. No JVD or lymphadenopathy. CARDIAC EXAM: S1, S2. No added sounds or murmurs. CHEST: clear bilaterally, No added sounds, rales or wheezes ABDOMEN: Soft, nontender. No guarding or rebound. EXTREMITIES: No cyanosis, clubbing or edema. NEUROLOGIC: Generalized weakness. No focal deficits. Results/Medications Result Diagram: 07/19/17 1152 07/19/17 1152 Results 24 hrs Laboratory Tests Test 07/19/17 22:50 Stool Occult Blood NEGATIVE Assessment/Plan Chief Complaint/Hosp Course Assessment 1. Non-STEMI. Significant cardiac disease on recent cardiac catheterization intervention as noted 2. Procedures Performed: 1)Left heart catheterization with selective left and right coronary angiography. 2)Balloon angioplasty and stenting of the distal RCA with an [place] 2.75 x 15 stent. 3)Balloon angioplasty and stenting of the distal RCA/ostial PLV with a Synergy 2.5 x 12 stent. 2. Ongoing tobacco history. Likely underlying mild to moderate COPD 3. Mild renal insufficiency Plan 1. Continue cardiac recommendations post intervention 2. Encourage smoking cessation 3. Continue hydration Discharge today. Outpatient pulmonary function tests Problems: PED[facility] FONTANA [facility] Jul 20, 2017 14:34
[2017-07-23 19:01] LABS: PSA, FREE 0.2 ng/mL
== END 2017-07-20 11:30 | disposition home health service (06) | DRG 247 ==
LOC: E/R 11:14 → MS3 11:47 → TEL 07-18 19:31
PROVIDERS: ADMIT Family Medicine; ATTEND Family Medicine
PROC: 027035Z Dilation of Coronary Artery, One Artery with Two Drug-eluting Intraluminal Devices, Percutaneous Approach (ICD-10-PCS; principal; 2017-07-18 12:30)
PROC: 4A023N7 Measurement of Cardiac Sampling and Pressure, Left Heart, Percutaneous Approach (ICD-10-PCS; 2017-07-18 12:30)
DX: I21.4 Non-ST elevation (NSTEMI) myocardial infarction (principal); J44.9 Chronic obstructive pulmonary disease, unspecified; I12.9 Hypertensive chronic kidney disease with stage 1 through stage 4 chronic kidney disease, or unspecified chronic kidney disease; Z72.0 Tobacco use; Z86.73 Personal history of transient ischemic attack (TIA), and cerebral infarction without residual deficits; I25.119 Atherosclerotic heart disease of native coronary artery with unspecified angina pectoris; N40.0 Benign prostatic hyperplasia without lower urinary tract symptoms; R42 Dizziness and giddiness; Z91.14 Patient's other noncompliance with medication regimen; E78.5 Hyperlipidemia, unspecified; D64.9 Anemia, unspecified; N18.9 Chronic kidney disease, unspecified
CPT/HCPCS: 71010; 80048; 80061; 82270; 82306; 82378; 82550; 82553; 82570; 82607; 82728; 82746; 83540; 83615; 84153; 84154; 84155; 84156; 84165; 84166; 84443; 84484; 84560; 85025; 85045; 85651; 93005; 93306; 93458; 93880; C1887; C9601; J0456; J0583; J1644; J1650; J2250; J3010; J7030; Q9967